=== PATIENT | male | born 1960 | race Caucasian/White ===

== ENCOUNTER 2016-12-25 04:00 | Emergency (ER) | payer OTHER ==
[~2016-12-25] VITALS: Ht 170.2 cm; Wt 78.0 kg
[~2016-12-25 04:00] MED LIST: POLYTRIM O200 GTT/BO OPH
--- NOTE | 2016-12-25 04:22 | ED HEADACHE COMPLAINT ---
History of Present Illness General Chief Complaint: General Adult Stated Complaint: " SEVERE HEADACHE, NAUSEA" Source: patient Exam Limitations: no limitations Vital Signs & Intake/Output Vital Signs & Intake/Output Vital Signs Date Time Temp Pulse Resp B/P Pulse O2 O2 Flow FiO2 Ox Delivery Rate 12/25 0546 96.8 88 18 140/62 98 Room Air 12/25 0411 97 Room Air 12/25 0407 96.3 63 18 159/77 97 Room Air Allergies Coded Allergies: NO KNOWN ALLERGIES (12/09/12) Reconcile Medications Cyclobenzaprine HCl 10 MG TABLET 1 TAB PO 4 TIMES/DAY PRN MUSCLE SPASM Ibuprofen 600 MG TABLET 1 TAB PO TID PRN PAIN with food Polytrim (Polytrim Eye Drops) 200 GTT/BOT GTT 1 GTT OPH Q6 CONJUNCTIVITIS Triage Note: PT FROM HOME C/O VENTURA. PT AND PTS SON STATES THAT PT HAD VENTURA SINCE YESTERDAY AFTERNOON INTERMITTENTLY, THE VENTURA WORSENED TODAY AND IS CONSTANT. PTS SON ADMINISTERED MOTRIN AND TYLENOL FOR VENTURA, AROUND 0400 PTS VENTURA BECAME WORSE WITH NAUSEA. Triage Nurses Notes Reviewed? yes Onset: Gradual Duration: day(s): Timing: recent history Quality/Severity: moderate Head Injury Location: frontal Modifying Factors: Improves With: medication, rest. Associated Symptoms: headache HPI: 56 yo gentleman with headache since yesterday afternoon. He notes that it feels like "poking" on the front part of his head. No nausea, vomiting, photophobia, fever, dizziness. He took advil with mild relief. He is otherwise well. Past History Travel History Traveled to [place] past 21 day No Medical History Any Pertinent Medical History? see below for history Cardiovascular: hypertension, hyperlipidemia Endocrine: diabetes Surgical History Surgical History: none Psychosocial History What is your primary language [facility] Tobacco Use: Never used Family History Hx Contributory? No Review of Systems Review of Systems Constitutional: Reports: no symptoms. Eyes: Reports: no symptoms. Ears, Nose, Throat, Mouth: Reports: no symptoms. Respiratory: Reports: no symptoms. Cardiovascular: Reports: no symptoms. Gastrointestinal/Abdominal: Reports: no symptoms. Genitourinary: Reports: no symptoms. Musculoskeletal: Reports: no symptoms. Skin: Reports: no symptoms. Neurological/Psychological: Reports: no symptoms. Hematologic/Endocrine: Reports: no symptoms. Endocrine: Reports: no symptoms. Immunologic/Allergic: Reports: no symptoms. All Other Systems: Reviewed and Negative Physical Exam Physical Exam General Appearance: well developed/nourished, mild distress Head: atraumatic, tender along scalp musculature of front/top of head Eyes: Bilateral: normal appearance, PERRL, EOMI, other (no pappilledema). Ears, Nose, Throat: normal pharynx, normal ENT inspection Neck: normal inspection, supple, full range of motion Respiratory: normal breath sounds, chest non-tender, no respiratory distress, quiet respiration, lungs clear Cardiovascular: regular rate/rhythm Gastrointestinal: normal bowel sounds, soft, non-tender, no organomegaly Back: normal inspection, normal range of motion Extremities: normal inspection, normal capillary refill, normal range of motion Psychiatric: awake, alert, oriented x 3 Cranial Nerves: normal hearing, normal speech, PERRL Coordination/Gait: normal finger to nose, normal gait Motor/Sensory: no motor/sensory deficits Reflexes: 1+: bicep (R), bicep (L). Skin: intact, normal color, warm/dry Core Measures Severe Sepsis Present: No Septic Shock Present: No Progress Differential Diagnosis: cluster VENTURA, migraine VENTURA, tension VENTURA, TMJ syndrome Plan of Care: gave toradol/acetaminophen/flexeril with good effect... head ct negative... discussed at length with family and patient. Diagnostic Imaging: Viewed by Me: CT Scan. Discussed w/RAD: CT Scan. Radiology Impression: HEAD CT... NEG... FULL REPORT BELOW. Comments: PATIENT: AUNDREA CORDERO PRESENT AGE: 56 PATIENT ACCOUNT NO: [id number] : 56 LOCATION: [facility] ORDERING PHYSICIAN: LEO MERA MD SERVICE DATE: 12/25/16 EXAM TYPE: CAT - CT HEAD WO IV CONTRAST EXAMINATION: CT HEAD WITHOUT CONTRAST CLINICAL INFORMATION: New onset headache COMPARISON: None TECHNIQUE: Contiguous axial imaging was performed from the skull base to vertex without intravenous administration of contrast. DLP: 529.16 mGy-cm FINDINGS: There is no evidence of acute intracranial hemorrhage or territorial infarction. No abnormal mass effect or midline shift is seen. Lewis to white matter differentiation is well preserved. No extra-axial fluid collections are identified. The ventricles are normal in size. There is no abnormal attenuation within the brain parenchyma. The osseous structures and soft tissues are normal. The mastoid air cells and visualized portions of the paranasal sinuses are well aerated. IMPRESSION: No acute intracranial pathology. DICTATED BY: WAYNE MORE MD DATE/TIME DICTATED:12/25/16507 SHRUB GROWER:CAROLYN DATE/TIME TRANSCRIBED:12/25/16507 CONFIDENTIAL, DO NOT COPY WITHOUT APPROPRIATE AUTHORIZATION. <Electronically signed in Other Vendor System> SIGNED BY: WAYNE MORE MD 12/25/16 0514 Departure Departure Disposition: HOME OR SELF CARE Condition: Stable Clinical Impression Primary Impression: Headache Referrals: PATIENT HAS NO PRIMARY CARE DR (PCP/Family) Departure Forms: Customer Survey General Discharge Information Prescriptions: Current Visit Scripts Ibuprofen 1 TAB PO TID PRN PAIN #30 TAB with food Cyclobenzaprine HCl 1 TAB PO 4 TIMES/DAY PRN MUSCLE SPASM #30 TAB Ref 1 Comments 12/25/16, 5:50am... pt feeling better... head ct negative... pt safe for discharge. Close follow up encouraged.
--- NOTE | 2016-12-25 05:14 | CT SCAN REPORT ---
EXAMINATION: CT HEAD WITHOUT CONTRAST CLINICAL INFORMATION: New onset headache COMPARISON: None TECHNIQUE: Contiguous axial imaging was performed from the skull base to vertex without intravenous administration of contrast. DLP: 529.16 mGy-cm FINDINGS: There is no evidence of acute intracranial hemorrhage or territorial infarction. No abnormal mass effect or midline shift is seen. Lewis to white matter differentiation is well preserved. No extra-axial fluid collections are identified. The ventricles are normal in size. There is no abnormal attenuation within the brain parenchyma. The osseous structures and soft tissues are normal. The mastoid air cells and visualized portions of the paranasal sinuses are well aerated. IMPRESSION: No acute intracranial pathology.
[2016-12-25] MEDS ORDERED: CYCLOBENZAPRINE10 M1 PO (05:40)
[2016-12-25] MEDS ORDERED: IBUPROFEN600 M1 PO (05:40)
[2016-12-25 05:46] VITALS: BP 140/62
== END 2016-12-25 05:48 ==
LOC: ERH 04:00
DX: R51 Headache (principal); R11.0 Nausea
CPT/HCPCS: 96372; J1885

== ENCOUNTER 2017-12-26 08:11 | Emergency (ER) | payer OTHER ==
[~2017-12-26 08:11] MED LIST changes: +CYCLOBENZAPRINE10 M1 PO; +IBUPROFEN600 M1 PO
--- NOTE | 2017-12-26 08:18 | ED HEADACHE COMPLAINT ---
History of Present Illness General Chief Complaint: General Adult Stated Complaint: RAPID RESPONSE, NEAR SYNCOPE Source: patient, family, old records Exam Limitations: no limitations Vital Signs & Intake/Output Vital Signs & Intake/Output Vital Signs Date Time Temp Pulse Resp B/P B/P Pulse O2 O2 Flow FiO2 Mean Ox Delivery Rate 12/26 1241 98.2 60 17 144/78 95 Room Air 12/26 1057 99 Room Air 12/26 0909 65 146/79 12/26 0909 65 150/84 12/26 0909 61 146/84 12/26 0857 99 Room Air 12/26 0816 198/108 Allergies Coded Allergies: NO KNOWN ALLERGIES (12/09/12) Reconcile Medications Cyclobenzaprine HCl 10 MG TABLET 1 TAB PO 4 TIMES/DAY PRN MUSCLE SPASM Cyclobenzaprine HCl 10 MG TABLET 1 TAB PO Q8P PAIN OR SPASM Ibuprofen 600 MG TABLET 1 TAB PO TID PRN PAIN with food Ibuprofen 600 MG TABLET 1 TAB PO TID PRN PAIN with food Polytrim (Polytrim Eye Drops) 200 GTT/BOT GTT 1 GTT OPH Q6 CONJUNCTIVITIS Triage Nurses Notes Reviewed? yes HPI: Patient was at work when he had a sudden onset of a sharp stabbing pain in the back of his head. Patient then felt very lightheaded and like he was given a pass out. Patient denies nausea vomiting. There is no chest pain or shortness of breath. He denies any blurry vision. He states that at its worst the pain was 10 out of 10 and is currently down to a 6 out of 10. There are no aggravating or mitigating factors. Patient does suffer from hypertension but states he took his medications as prescribed. He takes his blood pressure medication at night. Past History Travel History Traveled to [place] past 21 day No Medical History Any Pertinent Medical History? see below for history Cardiovascular: hypertension, hyperlipidemia Endocrine: diabetes Surgical History Surgical History: none Psychosocial History What is your primary language Green[place]ic Tobacco Use: Never used ETOH Use: occasional use Illicit Drug Use: denies illicit drug use Family History Hx Contributory? No Review of Systems Review of Systems Constitutional: Reports: no symptoms. Eyes: Reports: no symptoms. Ears, Nose, Throat, Mouth: Reports: no symptoms. Respiratory: Reports: no symptoms. Cardiovascular: Reports: no symptoms. Gastrointestinal/Abdominal: Reports: no symptoms. Genitourinary: Reports: no symptoms. Musculoskeletal: Reports: no symptoms. Skin: Reports: no symptoms. Neurological/Psychological: Reports: see HPI, headache. Hematologic/Endocrine: Reports: no symptoms. Endocrine: Reports: no symptoms. Immunologic/Allergic: Reports: no symptoms. All Other Systems: Reviewed and Negative Physical Exam Physical Exam General Appearance: well developed/nourished, alert, awake, anxious, moderate distress Head: atraumatic, normal appearance Eyes: Bilateral: PERRL, EOMI. Ears, Nose, Throat: normal pharynx, normal ENT inspection, hearing grossly normal Neck: normal inspection, supple, full range of motion Respiratory: normal breath sounds, chest non-tender, no respiratory distress, lungs clear Cardiovascular: regular rate/rhythm, normal peripheral pulses Gastrointestinal: normal bowel sounds, soft, non-tender, no organomegaly Back: normal inspection, normal range of motion Extremities: normal inspection, normal capillary refill, normal range of motion, no edema Psychiatric: awake, alert, oriented x 3 Cranial Nerves: normal hearing, normal speech, PERRL Coordination/Gait: normal gait Motor/Sensory: no motor/sensory deficits Skin: intact, normal color, warm/dry Core Measures Sepsis Present: No Sepsis Focused Exam Completed? No Progress Differential Diagnosis: cluster VENTURA, intracranial Hem., migraine VENTURA, musculoskeletal pain, subarach. Hem. Plan of Care: Orders Procedure Date/time Status Heart Healthy Diet 12/26 L Active TROPONIN LEVEL 12/26 1222 Complete EKG 12/26 1222 Active Add-on Test (ER Only) 12/26 1037 Active THYROID STIMULATING HORMONE 12/26 09 Complete TOTAL TRIODOTHYROXINE 12/26 09 Complete FREE T4 12/26 09 Complete MISTAKE 12/26 08 Active URINALYSIS 12/26 08 Complete TROPONIN LEVEL 12/26 08 Complete COMPREHENSIVE METABOLIC PANEL 12/26 08 Complete CBC WITHOUT DIFFERENTIAL 12/26 816 Complete EKG 12/26 08 Active Laboratory Tests 12/26/17 1226: Troponin I < 0.01 12/26/17 0925: Anion Gap 9, Estimated GFR > 60, BUN/Creatinine Ratio 33.3 H, Glucose 130 H, Calcium 8.5, Total Bilirubin 0.7, AST 16 L, ALT 32, Alkaline Phosphatase 69, Troponin I < 0.01, Total Protein 6.6, Albumin 3.8, Globulin 2.8, Albumin/ Globulin Ratio 1.4, TSH 1.360, Free T4 0.99, Total T3 1.40, Urine Color STRAW, Urine Clarity CLEAR, Urine pH 5.5, Ur Specific [place] 1.010, Urine Protein NEG, Urine Ketones NEG, Urine Nitrite NEG, Urine Bilirubin NEG, Urine Urobilinogen 0.2, Ur Leukocyte Esterase NEG, Ur Microscopic SEDIMENT EXAMINED, Urine RBC 1-3, Urine WBC RARE, Ur Epithelial Cells RARE, Hyaline Casts RARE H, Urine Hemoglobin SMALL H, Urine Glucose NEG 12/26/17 0843: CBC w Diff NO MAN DIFF REQ, RBC 4.90, MCV 90.3, MCH 31.0, MCHC 34.3, RDW 12.1, MPV 8.9, Gran % 52.3, Lymphocytes % 35.4, Monocytes % 9.1, Eosinophils % 2.5, Basophils % 0.7, Absolute Granulocytes 5.3, Absolute Lymphocytes 3.6 H, Absolute Monocytes 0.9 H, Absolute Eosinophils 0.3, Absolute Basophils 0.1 Diagnostic Imaging: Viewed by Me: CT Scan. Discussed w/RAD: CT Scan. Radiology Impression: PATIENT: AUNDREA CORDERO PRESENT AGE : 57 PATIENT ACCOUNT NO: [id number] : 56 LOCATION: [facility] ORDERING PHYSICIAN: Mango Flores MD SERVICE DATE: 12/26/17 EXAM TYPE: CAT - CT HEAD ANGIOGRAM; CT HEAD WO IV CONTRAST EXAMINATION: CT HEAD WO IV CONTRAST, CT HEAD ANGIOGRAM CLINICAL INFORMATION: [place] headache. Evaluate for intracranial aneurysm. COMPARISON: CT scan of the head 12/25/2016. TECHNIQUE: Diesel Machinist images were obtained. A CT angiogram of the head was performed in the arterial phase after the intravenous administration of 125 mL Optiray 350. Pre and delayed postcontrast images of the head were also obtained. MIP reconstructions were generated in multiple orientations at the acquisition workstation. Multiple three-dimensional surface rendered images and maximum intensity projection images were generated on a dedicated 3-D lab workstation. Arterial stenoses are measured in accordance with NASCET criteria or similar method if applicable. Total exam dose-length product 1905.49 mGy-cm FINDINGS: Postcontrast images reveal no abnormal intracranial mass or enhancement. No intracranial mass effect or midline shift. Lateral and third ventricles are normal. No hydrocephalus. There is no acute hemorrhage or abnormal extra-axial collection. Lewis-white matter differentiation is grossly preserved and there is no evidence of acute territorial infarct. The calvarium and skull base are intact. Mastoid air cells and middle ear cavities are well-aerated. Visualized paranasal sinuses are well-aerated. The petrous, cavernous, and supraclinoid segments of internal carotid arteries are patent. Intradural vertebral artery segments and basilar artery are patent. Anterior, middle, and posterior cerebral artery complexes are normal. There is no high-grade stenosis or proximal large vessel occlusion. No evidence of intracranial aneurysm. IMPRESSION: Normal CT angiogram of the head. No evidence of intracranial aneurysm. No high-grade stenosis or proximal vessel occlusion. There is no acute hemorrhage or abnormal extra-axial collection. Grossly no evidence of acute territorial infarct. DICTATED BY: Devan Holguin MD DATE/TIME DICTATED:12/26/17840 WAGON DRIVER SALESPERSON:CAROLYN DATE/TIME TRANSCRIBED:12/26/17840 CONFIDENTIAL, DO NOT COPY WITHOUT APPROPRIATE AUTHORIZATION. <Electronically signed in Other Vendor System> SIGNED BY: Devan Holguin MD 12/26/17 0901 Initial ED EKG: NSR, nonspecific ST T wave chg Prior EKG: unchanged Comments: HEADACHE CONTINUES TO IMPROVE. NO ORTHOSTATIC CHANGES. Departure Departure Disposition: HOME OR SELF CARE Condition: Stable Clinical Impression Primary Impression: Near syncope Secondary Impressions: Headache, Hypertension Referrals: Jovany Montanez MD (PCP/Family) Additional Instructions: take motrin and/or flexeril as needed follow up with your doctor about your blood pressure reutrn if symptoms worsen or for any concerns Departure Forms: Customer Survey General Discharge Information Prescriptions: Current Visit Scripts Ibuprofen 1 TAB PO TID PRN PAIN #20 TAB with food Cyclobenzaprine HCl 1 TAB PO Q8P #20 TAB
[2017-12-26 08:56] LABS: ABSOLUTE BASOPHIL COUNT 0.1 /CUMM (0.0-0.2); ABSOLUTE EOSINOPHIL COUNT 0.3 /CUMM (0.0-0.7); ABSOLUTE GRANULOCYTE CT 5.3 /CUMM (1.4-6.5); ABSOLUTE LYMPH COUNT 3.6 /CUMM (1.2-3.4); ABSOLUTE MONOCYTE COUNT 0.9 /CUMM (0.10-0.60); BASOPHIL % 0.7 % (0.0-2.0); EOSINOPHIL % 2.5 % (0-5); GRANULOCYTE % 52.3 % (42.2-75.2); HEMATOCRIT 44.2 % (42-52); MEAN CORPUSCULAR HGB CONC 34.3 G/DL (33.0-37.0); MEAN CORPUSCULAR VOLUME 90.3 FL (80.0-94.0); MEAN PLATELET VOLUME 8.9 FL (7.4-10.4); PLATELET COUNT 288 /CUMM (130-400); RBC DISTRIBUTION WIDTH 12.1 % (11.5-14.5); WHITE BLOOD CELL COUNT 10.2 /CUMM (4.8-10.8)
--- NOTE | 2017-12-26 09:01 | CT SCAN REPORT ---
EXAMINATION: CT HEAD WO IV CONTRAST, CT HEAD ANGIOGRAM CLINICAL INFORMATION: [place]cl[place] headache. Evaluate for intracranial aneurysm. COMPARISON: CT scan of the head 12/25/2016. TECHNIQUE: Cutting Torch Operator images were obtained. A CT angiogram of the head was performed in the arterial phase after the intravenous administration of 125 mL Optiray 350. Pre and delayed postcontrast images of the head were also obtained. MIP reconstructions were generated in multiple orientations at the acquisition workstation. Multiple three-dimensional surface rendered images and maximum intensity projection images were generated on a dedicated 3-D lab workstation. Arterial stenoses are measured in accordance with NASCET criteria or similar method if applicable. Total exam dose-length product 1905.49 mGy-cm FINDINGS: Postcontrast images reveal no abnormal intracranial mass or enhancement. No intracranial mass effect or midline shift. Lateral and third ventricles are normal. No hydrocephalus. There is no acute hemorrhage or abnormal extra-axial collection. Lewis-white matter differentiation is grossly preserved and there is no evidence of acute territorial infarct. The calvarium and skull base are intact. Mastoid air cells and middle ear cavities are well-aerated. Visualized paranasal sinuses are well-aerated. The petrous, cavernous, and supraclinoid segments of internal carotid arteries are patent. Intradural vertebral artery segments and basilar artery are patent. Anterior, middle, and posterior cerebral artery complexes are normal. There is no high-grade stenosis or proximal large vessel occlusion. No evidence of intracranial aneurysm. IMPRESSION: Normal CT angiogram of the head. No evidence of intracranial aneurysm. No high-grade stenosis or proximal vessel occlusion. There is no acute hemorrhage or abnormal extra-axial collection. Grossly no evidence of acute territorial infarct.
[2017-12-26 12:41] VITALS: BP 144/78
[2017-12-26] MEDS ORDERED: CYCLOBENZAPRINE10 M1 PO (12:52)
[2017-12-26] MEDS ORDERED: IBUPROFEN600 M1 PO (12:52)
== END 2017-12-26 13:39 ==
LOC: ERH 08:11
PROVIDERS: Emergency Medicine
DX: R55 Syncope and collapse (principal); R51 Headache; I10 Essential (primary) hypertension
CPT/HCPCS: 81001; 93005; 93010; 96374; 96375; J0131; J1885

== ENCOUNTER 2018-06-25 13:16 | Emergency (ER) | payer OTHER ==
[~2018-06-25] VITALS: Ht 157.5 cm; Wt 77.6 kg
[2018-06-25 13:19] VITALS: BP 168/85
--- NOTE | 2018-06-25 13:22 | ED HAND/WRIST INJURY COMPLAINT ---
History of Present Illness General Chief Complaint: Animal/Insect Bite Stated Complaint: EEL BITE FROM FISH TANK Source: patient Exam Limitations: no limitations Vital Signs & Intake/Output Vital Signs & Intake/Output Vital Signs Date Time Temp Pulse Resp B/P B/P Pulse O2 O2 Flow FiO2 Mean Ox Delivery Rate 06/25 1319 98.3 86 18 168/85 98 Room Air Allergies Coded Allergies: NO KNOWN ALLERGIES (12/09/12) Reconcile Medications Doxycycline Hyclate 100 MG CAPSULE 1 CAP PO BID eel bite Triage Nurses Notes Reviewed? yes Occurred: just prior to arrival Duration: hour(s):, constant Timing: single episode today Injury Environment: home Method of Injury: laceration HPI: 58-year-old male comes into the emergency room for further evaluation of laceration to right index finger. Patient reports that he was feeding the fish in the eel in the tank at work here at [employer]. He reports that the fish bit him in the right index finger. Some associated bleeding. Mild pain. Continuous. (Lorenzo Patterson) Past History Travel History Traveled to [place] past 21 day No Medical History Any Pertinent Medical History? see below for history Neurological: NONE EENT: NONE Cardiovascular: hypertension, hyperlipidemia Respiratory: NONE Gastrointestinal: NONE Hepatic: NONE Renal: NONE Musculoskeletal: NONE Psychiatric: NONE Endocrine: diabetes Blood Disorders: NONE Cancer(s): NONE FRONT DESK ASSISTANT/Reproductive: NONE Surgical History Surgical History: none Psychosocial History What is your primary language [facility] Tobacco Use: Never used Family History Hx Contributory? No (Lorenzo Patterson) Review of Systems Review of Systems Constitutional: Reports: no symptoms. EENTM: Reports: no symptoms. Respiratory: Reports: no symptoms. Cardiovascular: Reports: no symptoms. GI: Reports: no symptoms. Genitourinary: Reports: no symptoms. Musculoskeletal: Reports: no symptoms. Skin: Reports: see HPI. Neurological/Psychological: Reports: no symptoms. Hematologic/Endocrine: Reports: no symptoms. Immunologic/Allergic: Reports: no symptoms. All Other Systems: Reviewed and Negative (Lorenzo Patterson) Physical Exam Physical Exam General Appearance: well developed/nourished, mild distress Head: atraumatic Eyes: Bilateral: normal appearance. Ears, Nose, Throat: normal ENT inspection, hearing grossly normal Neck: normal inspection Cardiovascular/Respiratory: no respiratory distress Back: normal inspection Hand Left: normal inspection Hand Right: 2nd finger, 1 cm laceration to right index finger, well approximated , full range of motion, sensation intact, dried blood, Neurologic/Tendon: normal sensation, normal motor functions, normal tendon functions, responds to pain, no evidence tendon injury Skin: intact, normal color, warm/dry (Lorenzo Patterson) Progress Differential Diagnosis: dislocation, fracture, sprain, tenosynovitis Plan of Care: 06/25/2018 3:27:33 PM Wound was irrigated with saline. Patient was started on doxycycline. Tetanus shot was updated. He clinically looks well. In no apparent distress. Nontoxic -appearing. Not suturable. (Lorenzo Patterson) Departure Departure Disposition: HOME OR SELF CARE Condition: Stable Clinical Impression Primary Impression: Bitten by other fish, initial encounter Referrals: Jovany Montanez MD (PCP/Family) Additional Instructions: Take doxycycline as prescribed. Follow-up with occupational medicine. Return if any concerns worsening symptoms. Watch for signs of infection such as redness on discharge fever chills. Please go over all results of today's visit with your primary care doctor. Contact your primary care doctor to let them know you were here in the emergency room. There may be nonspecific findings which may not be related to your visit today here in the emergency room but may require further evaluation and chronic monitoring by your primary care doctor. If you had a laceration today the chance of foreign body always remains. You should follow-up with your primary care doctor for recheck in 3-5 days for a wound check. If you had an x-ray done there is a chance that a fracture could have been missed on initial read and you should follow-up with your primary care doctor for repeat x-rays if symptoms persist. If your blood pressure was elevated here in the emergency room please have rechecked by jaja primary care doctor within the next 48. If you were prescribed a narcotic here in the emergency room or any type of controlled substances you're not allowed to drive while taking this medication or operate any type of heavy machinery. Narcotics can make you feel lightheaded dizziness nausea and can cause constipation. You may need to case picker a stool softener. Thank you for choosing [facility] emergency room. Please return to the emergency room immediately if you have any other concerns worsening of symptoms. Departure Forms: Customer Survey General Discharge Information Prescriptions: Current Visit Scripts Doxycycline Poclate 1 CAP PO BID #14 CAP (Lorenzo Patterson) PA/TRAVEL MED SURG RN Co-Sign Statement Statement: ED Attending supervision documentation- [] I saw and evaluated the patient. I have also reviewed all the pertinent lab results and diagnostic results. I agree with the findings and the plan of care as documented in the PA's/[facility] SUR[facility] RN's documentation. [x] I have reviewed the ED Record and agree with the PA's/[facility] MED SUR[facility] RN's documentation. [] Additions or exceptions (if any) to the PAs/[facility] RN's note and plan are summarized below: [] (Freddy Mccray DO)
[2018-06-25] MEDS ORDERED: DOXYCYCLINE HY100 M2 PO (14:16)
== END 2018-06-25 14:25 ==
LOC: ERH 13:16
DX: S61.210A Laceration without foreign body of right index finger without damage to nail, initial encounter (principal); W56.81XA Bitten by other nonvenomous marine animals, initial encounter
CPT/HCPCS: 90471; 90714